=== PATIENT | male | born 2000 | race African-American/Black ===

== ENCOUNTER 2024-06-07 02:49 | Emergency (ER) | payer SELFPAY ==
[2024-06-07 02:52] VITALS: BP 164/98
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
[2024-06-07] MEDS: BENADRYL 50 MG PO (03:39)
[2024-06-07] MEDS: DELTASONE 50 MG PO (03:39)
[2024-06-07 03:40] VITALS: BMI 45.2
[2024-06-07 04:35] VITALS: BP 137/85
== END 2024-06-07 04:37 | disposition home or self-care (01) ==
LOC: EMR 02:49
PROVIDERS: EMERGENCY PHYSICIAN Emergency Medicine
DX: T63.481A Toxic effect of venom of other arthropod, accidental (unintentional), initial encounter (principal); L53.0 Toxic erythema; M54.6 Pain in thoracic spine; Y92.89 Other specified places as the place of occurrence of the external cause; Y93.89 Activity, other specified; Y99.0 Civilian activity done for income or pay; R03.0 Elevated blood-pressure reading, without diagnosis of hypertension; Z88.8 Allergy status to other drugs, medicaments and biological substances
CPT/HCPCS: 99283